=== PATIENT | female | born 1995 | race Hispanic/Latino ===

== ENCOUNTER 2018-05-11 07:00 | Emergency (ER) | payer OTHER, SELFPAY ==
[2018-05-11] MEDS ORDERED: Metoclopramide HCl 10 MG/2 ML VIAL ONE (07:18)
[2018-05-11] MEDS ORDERED: diphenhydrAMINE 50 MG/ML VIAL ONE (07:18)
[2018-05-11 07:35] LABS: Pregnancy Test - Urine (BHCG) Negative (Negative); Pregu Control Background? CLEAR/WHITE (CLR/WHITE); Pregu Control Bar Appear? YES (CONTROL BAR); Specific Gravity 1.025 (1.002-1.036)
[2018-05-11] MEDS ORDERED: Ketorolac Tromethamine 30 MG/ML VIAL ONE (07:54)
== END 2018-05-11 08:38 | disposition home or self-care (01) ==
LOC: SCSER 07:00
DX: R51 Headache (principal)
CPT/HCPCS: 81025; 96365; 96375; J1200; J1885; J2765

== ENCOUNTER 2019-08-28 06:32 | Inpatient (IN) | payer OTHER ==
[2019-08-28] MEDS ORDERED: hydrALAZINE 20 MG/ML VIAL SLOW IVP PRN ×3 (07:15→15:08)
[2019-08-28] MEDS ORDERED: Lactated Ringer's 1,000 ML IV SCH ×3 (07:15→07:30)
[2019-08-28 07:16] VITALS: BMI 39.6
[2019-08-28] MEDS ORDERED: Promethazine HCl 25 MG/ML VIAL IM PRN ×3 (07:27→15:08)
[2019-08-28] MEDS ORDERED: Ondansetron PF 4 MG/2 ML Vial IVP PRN ×3 (07:27→15:08)
[2019-08-28] MEDS ORDERED: Butorphanol Tartrate 1 MG/ML VIAL SLOW IVP PRN (07:27)
[2019-08-28] MEDS ORDERED: CEFAZOLIN 2 GM in Premix Bag 1 BAG IVPB SCH (07:30)
[2019-08-28] MEDS ORDERED: Bicitra 30 ML UDCUP PO SCH (07:30)
[2019-08-28] MEDS ORDERED: Azithromycin 500 MG in Sodium Chloride 0.9% 250 ML 250 ML IVPB SCH (07:30)
[2019-08-28 07:53] LABS: Hemoglobin 11.8 g/dL (12.0-16.0); Mean Corpuscular HGB CONC 35.2 g/dL (32.0-36.0); Mean Corpuscular Volume 85.1 fL (78.0-98.0); Mean Platelet Volume 8.5 fL (7.4-10.4); Platelet Count 209 thou/uL (130-400); RBC Distribution Width 12.7 % (11.5-14.5); Red Blood Cell (RBC) Count 3.92 mill/uL (4.20-5.40); White Blood Cell (WBC) Count 9.8 thou/uL (4.8-10.8)
[2019-08-28 08:34] LABS: HBSAg Index 0.14 S/CO (0-0.99); Hep B Surf Ag Non-Reactive S/CO (NonReactive); Syphilis Antibody Nonreactive (Nonreactive); Syphilis Antibody Index 0.04 S/CO (<1.00 Non-Reactive)
[2019-08-28] MEDS ORDERED: MORPHINE 5 MG/10 ML PF VIAL ONE (11:37)
[2019-08-28] MEDS ORDERED: Oxytocin 10 UNITS/ML VIAL ONE ×3 (11:37→11:39)
[2019-08-28] MEDS ORDERED: Ketorolac Tromethamine 30 MG/ML VIAL ONE (11:37)
[2019-08-28] MEDS ORDERED: PHENYLEPHRINE-NS 100 MCG/ML 10 ML SYRINGE ONE (11:37)
[2019-08-28] MEDS ORDERED: EPHEDRINE 25 MG/5 ML SYRINGE ONE (11:37)
[2019-08-28] MEDS ORDERED: Ondansetron PF 4 MG/2 ML Vial ONE (11:50)
[2019-08-28] MEDS ORDERED: Dexamethasone 4 mg/ml Vial ONE (11:50)
[2019-08-28] MEDS ORDERED: Fentanyl 100 MCG/2 ML VIAL ONE (12:27)
[2019-08-28] MEDS ORDERED: Meperidine HCl/PF 25 MG/ML VIAL ONE (12:54)
[2019-08-28] MEDS ORDERED: Ondansetron HCl/PF 4 MG/2 ML Vial IVP PRN (13:18)
[2019-08-28] MEDS ORDERED: HYDROmorphone 2 MG/ML VIAL SLOW IVP PRN (13:18)
[2019-08-28] MEDS ORDERED: Promethazine HCl 25 MG SUPP PR PRN (13:18)
[2019-08-28] MEDS ORDERED: L&D-Morphine 4 MG/ML VIAL SLOW IVP PRN (13:18)
[2019-08-28] MEDS ORDERED: Ketorolac Tromethamine 30 MG/ML VIAL IVP PRN (13:18)
[2019-08-28] MEDS ORDERED: Naloxone HCl 0.4 mg/ml Vial IV PRN (13:18)
[2019-08-28] MEDS ORDERED: diphenhydrAMINE 50 MG/ML VIAL IVP PRN (13:18)
[2019-08-28] MEDS ORDERED: Naloxone HCl 0.4 mg/ml Vial IVP PRN ×2 (13:18)
[2019-08-28] MEDS ORDERED: Meperidine HCl/PF 25 MG/ML VIAL SLOW IVP PRN (13:18)
[2019-08-28] MEDS ORDERED: Communication Order-Pharmacy FS SCH (13:30)
[2019-08-28] MEDS ORDERED: Ketorolac Tromethamine 30 MG/ML VIAL IVP SCH (13:30)
--- NOTE | 2019-08-28 13:42 | PDOC.OPDEL ---
OB Operative/Delivery Note Delivery Dr/Surgeon: Nehemias Assist: Rayray Pre-Delivery Diagnosis: other (Planned repeat LTCS, patient presented with contractions found to be in labor and thus was taken for repeat c/s) Procedure/Post Delivery Dx: repeat low transverse CS Weeks gestation: 39 Anesthesia: spinal - Findings A Sex: male Weight: 6 lb 15.889 oz - 1 min: 8 - 5 min: 9 - Additional Findings/Plan Placenta delivered: manual removal findings: low transverse hysterotomy without extension Estimated blood loss: 772 Compilations/Other Findings: Date of Procedure: 08/28/19 Resident Surgeon: Rayray Attending Surgeon: Nehemias Procedure: Repeat low transverse caesarean section Preoperative Diagnosis: 1)Term intrauterine , in labor 2)Previous Postoperative Diagnosis: 1)Term intrauterine , delivered 2) Velamentous cord insertion 3) Pelvic adhesive disease, moderate Anesthesia: spinal Indications: The patient is a 24 year old female at 39.0 weeks gestation who presented for contractions, found to be in labor, and thus taken for repeat LCTS. Procedure in Detail: After risks, benefits, and alternatives were explained to the patient, she gave informed consent. Pre-operative antibiotics included Cefazolin 2 gram IV. The patient was taken to the operating room and spinal anesthesia was initiated. She was placed in the supine position with a left tilt and prepped and draped in usual sterile fashion. A Pfannenstiel incision was made with a scalpel over the previous incision and carried down to the level of the fascia which was sharply nicked. The fascial cut was extended bilaterally with Sams scissors. The inferior and superior edges of the cut fascial edges were elevated with Benito clamps and the underlying rectus muscles were sharply and bluntly dissected free. A moderate amount of scar tissue was noted at both superior and inferior fascial edges, requiring both blunt and sharp dissection. The recti were divided digitally and retracted manually. The peritoneum was entered bluntly and retracted manually. The omentum was noted to be adhered to the peritoneum and was freed from the peritoneum partially with the Bovie to allow for adequate visualization. Bladder blade was placed. A low transverse score was made with the scalpel and the uterus was entered in the midline bluntly. Clear fluid was seen. The hysterotomy was extended manually. The infant was noted to be vertex and did not deliver by fundal pressure alone and thus a vacuum-assisted extraction was performed and baby then easily delivered. Mouth and nares were bulb suctioned. Cord clamped and cut and grossly normal male infant was handed to waiting nurse. Cord blood was obtained. Placenta was manually extracted, found to be intact with 3 vessel cord and a velamentous cord insertion and discarded. The uterus was unable to be externalized due to adhesions on the superior and posterior aspects. The endometrium was curetted with a dry lap. The bladder blade was replaced and the uterus was closed with a running locking #1-Monocryl followed by a running non-locking #0-vicryl imbricating suture. Following this hemostasis was noted. A few small areas of oozing cauterized with the bovie. The abdomen was irrigated with saline and suctioned free of clots. Suprafilm was then placed over the anterior aspect of the uterus. The uterus was again inspected and found to be hemostatic. The peritoneum was then closed with a running, non-locking 3-0 vicryl. The fascia was closed with a running non- locking 0-PDS suture. The subcutaneous tissue was irrigated and bleeders were cauterized with the Bovie. Hemostatis was visualized. The skin was approximated with jamia and a pressure dressing was placed. All counts were correct x3. The patient tolerated the procedure well and was taken to the recovery room in stable condition. QBL: 772cc Complications: None Specimens: Cord blood sent to lab for blood type Findings: Grossly normal male with Apgars of 8/9. Grossly normal placenta with 3 vessel cord discarded. Moderate amount of intra-abdominal adhesions requiring blunt and sharp dissection as well as inability to externalize the uterus. Drains: Christensen to gravity draining clear urine Post delivery plan: routine recovery
[2019-08-28] MEDS ORDERED: Bisacodyl 10 MG SUPP PR PRN (15:08)
[2019-08-28] MEDS ORDERED: diphenhydrAMINE 25 MG CAP PO PRN (15:08)
[2019-08-28] MEDS ORDERED: Adacel (T-DAP) 0.5 ML SYRINGE IM ONE (15:08)
[2019-08-28] MEDS ORDERED: Lanolin Ointment 7 GM TUBE TOP PRN (15:08)
[2019-08-28] MEDS: Ketorolac Tromethamine 30 MG/ML VIAL IVP SCH (18:19)
[2019-08-28] MEDS: Docusate Calcium (SURFAK) 240 MG CAP PO SCH (23:00)
[2019-08-28] MEDS: Ferrous Sulfate 325 MG TAB PO SCH (23:01)
[2019-08-29] MEDS ORDERED: Butorphanol Tartrate 1 MG/ML VIAL SLOW IVP PRN (01:30)
[2019-08-29] MEDS ORDERED: Meperidine HCl/PF 25 MG/ML VIAL IM PRN (01:30)
[2019-08-29] MEDS: Ketorolac Tromethamine 30 MG/ML VIAL IVP SCH (02:23)
[2019-08-29 06:02] LABS: Mean Corpuscular HGB CONC 35.6 g/dL (32.0-36.0); Mean Corpuscular Hemoglobin 30.2 pg (27.0-31.0); Mean Corpuscular Volume 84.9 fL (78.0-98.0); Mean Platelet Volume 7.7 fL (7.4-10.4); Platelet Count 159 thou/uL (130-400); RBC Distribution Width 12.5 % (11.5-14.5); Red Blood Cell (RBC) Count 2.96 mill/uL (4.20-5.40); White Blood Cell (WBC) Count 9.3 thou/uL (4.8-10.8)
[2019-08-29] MEDS ORDERED: Ketorolac Tromethamine 30 MG/ML VIAL IVP SCH (09:00)
[2019-08-29] MEDS: HYDROcodone/Acetaminophen 5/325 mg Tablet PO PRN ×4 (09:21→21:34)
[2019-08-29] MEDS: Simethicone Chewable 80 MG TAB PO PRN ×3 (09:21→21:34)
[2019-08-29] MEDS: Ferrous Sulfate 325 MG TAB PO SCH ×2 (09:22→21:33)
[2019-08-29] MEDS: Docusate Calcium (SURFAK) 240 MG CAP PO SCH ×2 (09:22→21:33)
[2019-08-29] MEDS: Ibuprofen 800 MG TAB PO SCH ×2 (13:36→21:34)
[2019-08-30] MEDS: HYDROcodone/Acetaminophen 5/325 mg Tablet PO PRN ×6 (01:49→23:15)
[2019-08-30] MEDS: Ibuprofen 800 MG TAB PO SCH ×3 (05:41→21:26)
[2019-08-30] MEDS: Simethicone Chewable 80 MG TAB PO PRN ×2 (05:41→21:26)
[2019-08-30] MEDS: Ferrous Sulfate 325 MG TAB PO SCH ×2 (08:26→21:26)
[2019-08-30] MEDS: Docusate Calcium (SURFAK) 240 MG CAP PO SCH ×2 (08:26→21:26)
[2019-08-31] MEDS: Simethicone Chewable 80 MG TAB PO PRN ×2 (04:40→11:12)
[2019-08-31] MEDS: HYDROcodone/Acetaminophen 5/325 mg Tablet PO PRN ×3 (04:40→13:06)
[2019-08-31] MEDS: Ibuprofen 800 MG TAB PO SCH ×2 (04:40→13:06)
[2019-08-31 08:10] VITALS: TEMP 98.1
[2019-08-31] MEDS: Ferrous Sulfate 325 MG TAB PO SCH (09:04)
[2019-08-31] MEDS: Docusate Calcium (SURFAK) 240 MG CAP PO SCH (09:04)
[2019-08-31 11:20] VITALS: BP 135/76
== END 2019-08-31 14:25 | disposition home or self-care (01) | DRG 788 ==
LOC: L&D/OP 06:32 → L&D 07:27 → 3SW 15:15
PROVIDERS: ADMIT Family Medicine; ATTEND Family Medicine
PROC: 10D00Z1 Extraction of Products of Conception, Low, Open Approach (ICD-10-PCS; principal; 2019-08-28)
DX: O34.211 Maternal care for low transverse scar from previous cesarean delivery (principal); Z3A.39 39 weeks gestation of pregnancy; Z37.0 Single live birth; Z88.2 Allergy status to sulfonamides
CPT/HCPCS: 36415; 51702; 85027; 86780; 86850; 86900; 86901; 87340; 99285; J1100; J1885; J2175; J2274; J2405; J2590; J3010